=== PATIENT | female | born 1950 | race Hispanic/Latino ===

== ENCOUNTER 2020-12-01 07:51 | Day surgery (SDC) | payer OTHER ==
[~2020-12-01 07:51] MED LIST: 0.9%NACL 1000ML 1,000 ML IV ONE; ALEN70TA80 PO; FENO160T16 PO; LINA145C PO; LOSA50TA64 PO; METO-391 PO; MV-M1TAB20 PO; PANT40TA54 PO; SUCR1TAB2 PO; VITA80008 PO; [UNRECOGNIZED DRUG - CODE] PO
[2020-12-01 10:20] VITALS: BP 149/76
[2020-12-01] MEDS ORDERED: ONDANSETRON 4MG INJ ONE (11:28)
[2020-12-01] MEDS ORDERED: LIDOCAINE HCL 400MG/20ML VIAL ONE (11:28)
[2020-12-01] MEDS ORDERED: PROPOFOL 10 MG/ML 20ML VIAL IV ONE (11:28)
[2020-12-01 12:00] VITALS: BP 116/53
[2020-12-01 12:05] VITALS: BP 125/64
[2020-12-01 12:11] VITALS: BP 133/67
[2020-12-01 12:16] VITALS: BP 138/77
[2020-12-01 12:21] VITALS: BP 136/71
== END 2020-12-01 12:30 | disposition home or self-care (01) ==
LOC: DAH 07:51 → ENDO 07:51
PROVIDERS: ATTEND Internal Medicine
DX: K31.89 Other diseases of stomach and duodenum (principal); Z20.822 Contact with and (suspected) exposure to COVID-19; K29.50 Unspecified chronic gastritis without bleeding; I10 Essential (primary) hypertension; E78.5 Hyperlipidemia, unspecified; K21.9 Gastro-esophageal reflux disease without esophagitis; E78.00 Pure hypercholesterolemia, unspecified; M19.90 Unspecified osteoarthritis, unspecified site; Z98.890 Other specified postprocedural states; Z98.51 Tubal ligation status; Z86.010 Personal history of colon polyps; Z79.899 Other long term (current) drug therapy
CPT/HCPCS: 43237; 43239; 87635; 88305; 88341; 88342; 93005; A4606; C9803; J2405; J2704; J3490; J7030